=== PATIENT | female | born 1955 | race Caucasian/White ===

== ENCOUNTER 2025-03-30 16:41 | Emergency (ER) | payer MEDICARE, BC, SELFPAY ==
--- OUTSIDE RECORDS SUMMARY | 2025-03-30 16:43 | XMS_ITS ---
Author Organization [facility] Address [address] [place] [address] Care Team Providers Care Strategic Marketing Manager Name Role Phone Prudence Mckenzie M.D. Primary Care Provider Active Problems * This document contains information received from the source organization and may not represent a complete record from that organization. 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 Saw Property Field Adjuster. Repeat pelvic ultrasound in 12/2023. Hypertension Essential Primary 04/21/2017 Cancer Breast Personal History 04/21/2017 Overview (06/21/2024): 08/2011 s/p maste[facility] (bilateral) [facility] with [place] [facility] [place] Self chest exam and awareness of intermittent R axillary lymph nodes ongoing, annual clinical breast exam (usually in fall) Rhinitis Allergic 04/21/2017 Overview (01/28/2018): per External Record info - 04/17/2017 Current Treatment and Therapy Plans No current plan information found. Past Treatment and Therapy Plans No past plan information found. Lifetime Dose Tracking * Chemical Lifetime Dose Automatic Entry Manual Entr y Radiation 1.5 mGy 1.5 mGy 0 mGy Fluoro Time 0.3 minutes 0.3 minutes 0 minutes Resolved Problems Problem Noted Date Diagnosed Date Resolved Date Malignant Neoplasm Of Breast Female Left 09/24/2011 01/28/2018
--- OUTSIDE RECORDS SUMMARY | 2025-03-30 16:43 | XMS_ITS | Clinical Summary ---
Author Organization [facility] Address [address] [place] [address] Care Team Providers Care Push Connector Assembler Name Role Phone Prudence Mckenzie M.D. Primary Care Provider [phone] Source Comments Patient records contain information from all sites at [facility]. For routine questions regarding patient records, call [phone] during business hours, M-F 8:00 AM - 5:00 PM Central Time. Record requests for emergency care only can be directed to [phone] at any time.[facility] Allergies Active Allergy Reactions Criticality Noted Date Comments Adhesive Other (see comments) Low 05/27/2012 from bandaids Calcium Channel Blocking Agent Diltiazem Analogues Edema (Reselect Reaction) Low 10/19/2020 1 pill - ankle swelling (cant remember name) Cephalexin Rash Low 08/30/2020 Red, flat rash Ciprofloxacin Nausea Only,GI intolerance Low 05/18/2012 Codeine Nausea Only,GI intolerance Low 05/18/2012 Lisinopril Cough Low 10/19/2020 Nebivolol Shortness of breath (Reselect Reaction) High 08/08/2011 With exertion Sulfa (Sulfonamide Antibiotics) Rash,GI intolerance High 06/17/2011 Triamterene-Hydrochloro thiazid Shortness of breath (Reselect Reaction),Rash,Edema (Reselect Reaction),Hypertensio n High 08/08/2020 Medications * This document contains information received from the source organization and may not represent a complete record from that organization. naproxen sodium (ALEVE/ANAPROX) 220 mg tablet Take 220 mg by mouth as needed for pain. Active cholecalciferol (VITAMIN D3) 50 mcg (2,000 Unit) tablet Take 2,000 Units by mouth daily. Active methocarbamoL (ROBAXIN) 500 mg tabletIndicatio ns:Pain Shoulder Left Take 0.5 tablets (250 mg total) by mouth at bedtime as needed for muscle spasms. 10 tablet 08/21/2021 Active acetaminophen (TYLENOL) 500 mg tablet Take 500 mg by mouth every 6 (six) hours as needed for pain. Active losartan (Cozaar) 25 mg tablet Take 1 tablet (25 mg total) by mouth daily. 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 Saw Watch Caser. Repeat pelvic ultrasound in 12/2023. Hypertension Essential Primary 04/21/2017 Cancer Breast Personal History 04/21/2017 Overview (06/21/2024): 08/2011 s/p mastectomy (bilateral) at [facility] with reconstruction Revision of breast implants [facility] 08/2020 Self chest exam and awareness of intermittent R axillary lymph nodes ongoing, annual clinical breast exam (usually in fall) Rhinitis Allergic 04/21/2017 Overview (01/28/2018): per External Record info - 04/17/2017 Resolved Problems Problem Noted Date Diagnosed Date Resolved Date Malignant Neoplasm Of Breast Female Left 09/24/2011 01/28/2018 Encounters Date Type Department Care Team Description 03/30/2025 Nurse Triage Department of Family Medicine, [facility], in [place], [place] [address] [place] [phone] Laure Montgomery R.N. Toe Injury from Last 3 Months Immunizations Immunization Administration Dates Next Due Influenza Split 07/15/2013,05/23/2012 Influenza TIV (IM) 06/10/2012,09/06/2011, 002 Influenza high dose QV(65 ye ars or older) (PF) 07/15/2013 Influenza, Seasonal, Injectable 06/10/2012,09/06,08/13/2002 Influenza, Unspecified 06/22/2014,05/23/2012,02/2002 PPSV23 12/25/2022(Deferred: Other) RZV (SHINGRIX) 12/25/2022(Deferred: Patient dec ision) SARS-COV-2 (COVID-19) - PFIZ ER (Discontinued)(12 years or older) 12/25/2022(Deferred: Patient decision),12/01/2020,11/10/2020 Td (Adult), adsorbed 04/22/2008,04/14/1998 Td, (Adult) Unspecified 04/22/2008 Tdap 07/15/2013,09/07/2008 influenza trivalent high dos e (HD)(PF) 07/15/2013 influenza vaccine quad (FLUZONE/FLUARIX) (6 months and older)(PF) 07/29/2022,07/25/2021,06/22/2014 Family History Medical History Relation Name Comments Breast cancer Aunt maternal x2 and materna l cousin Skin cancer Brother Tato CABG - Coronary artery bypas s graft Father Sy Cataracts Father Sy Coronary artery disease Father Sy 5v b ypass Hypertension Father Sy Skin cancer Father Sy Stroke Father Sy Urolithiasis Grandfather Paternal Heart attack Maternal Grandfather Asthma Mother Carolee COPD Mother Carolee Cataracts Mother Carolee Coronary artery disease Mother Carolee sten t Hyperlipidemia Mother Carolee Hypertension Mother Carolee Skin cancer Mother Carolee Retinal detachment Other Asthma Sister 1 Sis Breast cancer Sister 1 Sis Stage 4 Fuchs' dystrophy Sister 1 Sis Asthma Sister 2 Hypertension Sister 3 Kiana Coronary artery disease Uncle Hypertension Uncle Anesthesia problems Neg Hx Glaucoma Neg Hx Macular degeneration Neg Hx Retinal degeneration Neg Hx Relation Name Status Comments Aunt maternal Brother Tato Alive Father Sy Alive Grandfather Paternal Maternal Grandfather Mother Carolee Alive Other Sister 1 Sis Alive Sister 2 Sister 3 Kiana Alive Uncle Social History Tobacco Use Types Packs/Day Years Used Date Smoking Tobacco: Never Smokeless Tobacco: Never Tobacco Cessation:Counseling Given: Not Answered Alcohol Use Standard Drinks/Week Comments Yes 0 (1 standard drink = 0.6 oz pur e alcohol) not drinking weekly [employer] Answer Date Recorded In the past 12 months has e [employer] gas, oil, or water [employer] threatened to shut off services in your home? No 11/10/2024 Humiliation, Afraid, Rape, and Kick questionnair e Answer Date Recorded Within the last year, have y ou been afraid of your partner or ex-partner? No 05/30/2022 Within the last year, have y ou been humiliated or emotionally abused in other ways by your partner or ex-partner? No Within the last year, have y ou been kicked, hit, slapped, or otherwise physically hurt by your partner or ex-partner? No 05/30/2022 Within the last year, have y ou been raped or forced to have any kind of sexual activity by your partner or ex-partner? No 05/30/2022 Hunger Vital Sign Answer Date Recorded Within the past 12 months, y ou worried that your food would run out before you got the money to buy more. Never true 11/11/19 25 Within the past 12 months, t he food you bought just didn't last and you didn't have money to get more. Never true 11/10/2024 PRAPARE - Transportation Answer Date Re corded In the past 12 months, has l ack of transportation kept you from medical appointments or from getting medications? No 01/2025 In the past 12 months, has l ack of transportation kept you from meetings, work, or from getting things needed for daily living? No 11/10/2024 Housing Stability Answer Date Recorded What is your living situation today? I have a [place] place to live 11/10/2024 Education Answer Date Recorded What is the highest level of school you have completed or the highest degree you have received? Some college, no degree 05/01/2020 Comments No Sex and Gender Information Value Date Recorded Sex Assigned at Female 08/27/2021 3:26 PM MUSIC ARTIST Legal Sex Female 3:32 AM MUSIC ARTIST Gender Identity Female 08/01/2020 1:33 PM MUSIC ARTIST Sexual Orientation Straight 08/01/2020 1: 33 PM MUSIC ARTIST Last Filed Vital Signs Vital Sign Reading Time Taken Comments Blood Pressure 151/93 08/03/2024 1:00 PM MUSIC ARTIST Pulse 70 08/03/2024 1:00 PM MUSIC ARTIST Temperature 36.5 C (97.7 F) 08/03/2024 11:56 AM MUSIC ARTIST Respiratory Rate 16 08/03/2024 12:39 PM MUSIC ARTIST Oxygen Saturation 100% 08/03/2024 1:00 PM MUSIC ARTIST Inhaled Oxygen Concentration - - Weight 66.5 kg (146 lb 9.7 oz) 08/03/2024 11:56 AM MUSIC ARTIST Height 162 cm (5' 3.78) 02/25/2024 8:37 AM CDT Body Mass Index 25.34 02/25/2024 8:37 AM CDT Plan of Treatment Upcoming Encounters Date Type Department Care Team (Latest Contact Info) Description 06/20/2025 9:10 AM CDT Appointment Department of Laboratory Medicine in [place], [place] [address] [place], [place] [phone] Prudence Mckenzie M.D. [address] [place] [phone] 06/28/2025 9:20 AM CDT Comprehensive Visit Department of Family Medicine, [facility], in [place] [place] [address] Prudence Mckenzie M.D. [address] [place] [phone] Discharge Disposition: Home or Self Care Health Maintenance Due Date Last Done Comments CT Colonography 1955 Hepatitis C Screening 1955 Visit: Medicare Annual Wellness 1955 Pneumococcal vaccine (50+ years) (1 of 1 - PCV) 2004 Zoster Vaccines (1 of 2) 2004 COVID-19 Vaccine (3 - season) 2024 12/01/2020, 11/10/2020 Depression Screening (Annual PHQ-2) 09/08/2024 Fall Risk Screen (Annual) 09/08/2024 Office Visit for Blood Pressure Check / Re-check 09/21/2024 06/21/2024 Influenza Vaccine (#1) 2025 , 07/29/2022, 07/25/2021, Additional history exists Visit: Chronic Disease, age 18+ 06/21/2025 06/21/2024 Creatinine Level (Kidney Function Test) 09/22/2025 09/22/2024, 10/06/2023, 06/20/2023, Additional history exists Potassium Level 09/22/2025 09/22/2024, 09/09, 06/20/2023, Additional history exists Sodium Level 09/22/2025 09/22/2024, 09/09, 06/20/2023, Additional history exists Cologuard 06/28/2027 06/28/2024 Fasting Glucose for Diabetes Screening 09/22/2027 09/22/2024, 10/06/2023, 06/20/2023, Additional history exists Colonoscopy 08/03/2029 08/03/2024, 04/09 (Performed elsewhere) Colorectal Cancer Surveillance 08/03/2029 DTaP,Tdap,and Td Vaccines (4 - Td or Tdap) 06/28/2034 06/28/2024, 07/15/2013, 09/07/2008, Additional history exists Cervical/Vaginal Cancer Screening Discontinued 05/19/2015 (Performed elsewhere), 08/23/2011 (Performed elsewhere) Bone Density Scan (Osteoporosis Screen) Discontinued 08/28/2022 Colonoscopy After Positive Cologuard Discontinued 08/03/2024 IPV Vaccines Aged Out No longer eligi ble based on patient's age to complete this topic Medical Devices Implanted Type Area Merchandise Flow Team Member Device Identifier Shelf Expiration Date Model / Serial / Lot Conversions - Default Historical Implant Device Implanted:2014 (Quantity not on file) Hardware e.g. pins/screws/r ods Description:Device Status Te xt - Hardware. screw in foot. Explanted Type Area Merchandise Flow Team Member Device Identifier Shelf Expiration Date Model / Serial / Lot Stent Inlay 7fr X 24cm - Junior [id number] Implanted:Qty: 1 on 06/17/2011 Ureteral Stent Ureter [employer] Description:Device Manufactu [facility] Patient Care Division. Device Status Text - [id number]. Stnt Uret Lp Cntr [id number] - [id number] Implanted:Qty: 1 on 11/13/2021 by Vidal Rubio M.D. at [facility] Ureteral Stent Left: Vagina [employer] 07/05/2024 [id number] / / [id number] Procedures Procedure Name Priority Date/Time Associated Diagnosis Comments BASIC METABOLIC PANEL, S/P Routine 09/22/2024 10:03 AM MUSIC ARTIST Hypertension Essential Primary Hypertension White Coat Nephrolithiasis COLONOSCOPY Routine 08/03/2024 12:36 PM MUSIC ARTIST Screening Cancer Colon COLOGUARD Routine 06/28/2024 6:40 AM CDT Screening Cancer Colon from Last 3 Months or Most Recently Relevant to Health Maintenance Results * Basic Metabolic Panel (09/22/2024 10:03 AM MUSIC ARTIST) Potassium, P 4.4 3.6 - 5.2 mmol/L 09/22/2024 12:13 PM MUSIC ARTIST RDWG Sodium, P 142 135 - 145 mmol/L 09/22/2024 12:13 PM MUSIC ARTIST RDWG Chloride, P 104 98 - 107 mmol/L 09/22/2024 12:13 PM MUSIC ARTIST RDWG Bicarbonate, P 25 22 - 29 mmol/L 09/22/2024 12:13 PM MUSIC ARTIST RDWG Anion Gap, P 13 7 - 15 09/22/2024 12:13 PM MUSIC ARTIST RDWG BUN (Blood Urea Nitrogen), P 15 6 - 21 mg/dL 09/22/2024 12:13 PM MUSIC ARTIST RDWG Creatinine 0.93 0.59 - 1.04 mg/dL 09/22/2024 12:13 PM MUSIC ARTIST RDWG Estimated GFR (eGFR) 67 >=60 mL/min/BSA 09/22/2024 12:13 PM MUSIC ARTIST RDWG Comment: Estimated GFR calculated using the 2020 CKD_EPI creatinine equation. Calcium, Total, P 9.7 8.8 - 10.2 mg/dL 09/22/2024 12:13 PM MUSIC ARTIST RDWG Glucose, P 94 70 - 140 mg/dL 09/22/2024 12:13 PM MUSIC ARTIST RDWG Blood (Blood, Peripheral Draw) 09/22/2024 10:03 AM MUSIC ARTIST 09/22/2024 11:36 AM MUSIC ARTIST us Prudence Mckenzie M.D. LAB BLOOD ADD-ON Final Resu lt [facility] [address] [place] [address], [facility] RDWG [facility] in [place] [address] [place] [address] * (ABNORMAL) Cologuard - Sent Out Lab (06/28/2024 6:40 AM CDT) Result Positive( A) Negative 07/03/2024 4:18 PM CDT EXLI Comment: POSITIVE TEST RESULT. A positive Cologuard result should be followed with a colonoscopy or visual examination of the colon. The normal value (reference range) for this assay is negative. TEST DESCRIPTION: Composite algorithmic analysis of stool DNA-biomarkers with hemoglobin immunoassay. Quantitative values of individual biomarkers are not reportable and are not associated with individual biomarker result reference ranges. Cologuard is intended for colorectal cancer screening of adults of either sex, 45 years or older, who are at average-risk for colorectal cancer (CRC). Cologuard has been approved for use by the U.S. FDA. The performance of Cologuard was established in a cross sectional study of average-risk adults aged 50-84. Cologuard performance in patients ages 45 to 49 years was estimated by sub-group analysis of near-age groups. Colonoscopies performed for a positive result may find as the most clinically significant lesion: colorectal cancer [4.0%], advanced adenoma (including sessile serrated polyps greater than or equal to 1cm diameter) [20%] or non- advanced adenoma [31%]; or no colorectal neoplasia [45%]. These estimates are derived from a prospective cross-sectional screening study of 10,000 individuals at average risk for colorectal cancer who were screened with both Cologuard and colonoscopy. (Ally Bland al, N Engl J Med 2014;370(14):1179-8119.) Cologuard may produce a false negative or false positive result (no colorectal cancer or precancerous polyp present at colonoscopy follow up). A negative Cologuard test result does not guarantee the absence of CRC or advanced adenoma (pre-cancer). The current Cologuard screening interval is every 3 years. ([place] Cancer Society and U.S. Multi-Society Task Force). Cologuard performance data in a 10,000 patient pivotal study using colonoscopy as the reference method can be accessed at the following location: [email or web address]/results. Additional description of the Cologuard test process, warnings and precautions can be found at www.cologuard.com. Stool (Stool) 06/28/2024 6:4 0 AM CDT 06/29/2024 12:14 PM CDT Prudence Mckenzie M.D. LAB BODY FLUIDS AND STOOLS ORDERABLES Final Result [employer] [address] [place] [id number] [address] [address] [place] [address], [address] [place] [address] from Last 3 Months or Most Recently Relevant to Health Maintenance Insurance [id number] Tonia VaughanANGY [id number] MEDIC[place] [address] Advance Directives For more information, please contact: [phone] Documents on File Type Date Recorded Patient Resident Physician In Radiology Expl anation Advance Directives 05/04/2020 2:20 PM POA for Healthcare Advance Directives 09/16/2013 12:00 AM Lega cy document. See document viewer. * Full Code (Latest Code Status on File) Date Activated Date Inactivated Comments 06/20/2022 8:14 AM 06/20/2022 2:01 PM Question Answer Comments Full Code: Discussed Healthcare Agents on File Name Relationship Healthcare Agent Relationship Communication Leilani Brenna Daughter Health Care Agent Luis Peres Son First Alternate Health Care Agent Care Teams Push Connector Assembler Relationship Specialty Start Date End Date Prudence Mckenzie M.D. [place] [phone] PCP - General Internal Medicine 01/23/18
--- OUTSIDE RECORDS SUMMARY | 2025-03-30 16:43 | XMS_ITS | Encounter Summary ---
Author Organization [facility] Address [address] [place] [address] Care Team Providers Care Ropeman Name Role Phone Prudence Mckenzie M.D. Primary Care Provider Reason for Visit * Reason Onset Date Comments Toe Injury 03/30/2025 Encounter Details Date Type Department Care Team (Late st Contact Info) Description 03/30/2025 Nurse Triage Department of Family Medicine, [facility], in [place], [place] [address] [place] [address] [place] [phone] Laure Montgomery, R.N. Toe Injury Social History Tobacco Use Types Packs/Day Years Used Date Smoking Tobacco: Never Smokeless Tobacco: Never Alcohol Use Standard Drinks/Week Comments Yes 0 (1 standard drink = 0.6 oz pur e alcohol) not drinking weekly [facility] Utilities Answer Date Recorded In the past 12 months has e electric, gas, oil, or water company threatened to shut off services in your [...] money to buy more. Never true 11/11/19 Within the past 12 months, t he [...] your living situation today? I have a [facility] place to live 11/10/2024 Education Answer Date Recorded What is the highest level of school you have completed or the highest degree you have received? Some college, no degree 05/01/2020 Comments No Sex and Gender Information Value Date Recorded Sex Assigned at Female 08/27/2021 3:26 PM CHILDREN COUNSELOR Legal Sex Female 3:32 AM CHILDREN COUNSELOR Gender Identity Female 08/01/2020 1:33 PM CHILDREN COUNSELOR Sexual Orientation Straight 08/01/2020 1: 33 PM CHILDREN COUNSELOR documented as of this encounter Miscellaneous Notes * Telephone Encounter - Laure Montgomery R.N. - 03/30/2025 2:17 PM CDT Chief Complaint / Reason for Call Patient is a 69 y.o. female calling regarding Toe Injury. Assessment Concern: Pt calling about broken little toe left foot. Pt states that toe is bent. Present for: 5-10 minutes Home cares tried: None Calling to request: nurse recommendation The recommended disposition is See a health care provider within 4 hours. Patient was warm transferred to [facility], Patient Appointment Program Architect at the clinic for further assistance. and If clinic appointment is not available in the next 4 hours, caller is advised to be seen in emergency department Reason for Disposition Looks like a broken bone (e.g., crooked or deformed) Protocols used: Toe Gkfucp-Nirye-RX Care Advice Patient/Caregiver understands and will follow care advice?: Yes, able to teach back Toe Bgsgzp-Ddoli-MM Nurse Laure Levine Mar 30, 2025 02:19 PM Care Advice PAIN MEDICINES: * For pain relief, you can take either acetaminophen, ibuprofen, or naproxen. * They are vrvj-edk-vyieiwa (OTC) pain drugs. You can buy them at the drugstore. * ACETAMINOPHEN - REGULAR STRENGTH TYLENOL: Take 650 mg (two 325 mg pills) by mouth every 4 to 6 hours as needed. Each Regular Strength Tylenol pill has 325 mg of acetaminophen. The most you should take is 10 pills a day (3,250 mg total). Note: In Bibi, the maximum is 12 pills a day (3,900 mg total). * ACETAMINOPHEN - EXTRA STRENGTH TYLENOL: Take 1,000 mg (two 500 mg pills) every 6 to 8 hours as needed. Each Extra Strength Tylenol pill has 500 mg of acetaminophen. The most you should take is 6 pills a day (3,000 mg total). Note: In Bibi, the maximum is 8 pills a day (4,000 mg total). * IBUPROFEN (SUCH MOTRIN, ADVIL): Take 400 mg (two 200 mg pills) by mouth every 6 hours. The most you should take is 6 pills a day (1,200 mg total). * NAPROXEN (SUCH ALEVE): Take 220 mg (one 220 mg pill) by mouth every 8 to 12 hours as needed. You may take 440 mg (two 220 mg pills) for your first dose. The most you should take is 3 pills a day(660 mg total). Note: In Bibi, the maximum is 2 pills a day (one every 12 hours; 440 mg total). * Use the lowest amount of medicine that makes your pain better. CALL BACK IF: * You become worse documented in this encounter Plan of Treatment Upcoming Encounters Date Type Department Care Team (Latest Contact Info) Description 06/20/2025 9:10 AM CDT Appointment Department of Laboratory Medicine in [place], [place] [address] [place] [phone] Prudence Mckenzie M.D. [address] [phone] 06/28/2025 9:20 AM CDT Comprehensive Visit Department of [facility], [facility], in [place], [place] [address] [place] [phone] Prudence Mckenzie M.D. [address] [phone] Discharge Disposition: Home or Self Care documented as of this encounter Visit Diagnoses Not on filedocumented in this encounter Care Teams Ropeman Relationship Specialty Start Date End Date Prudence Mckenzie M.D. [address] [phone] PCP - General Internal Medicine 01/23/18 documented as of this encounter
[2025-03-30 16:56] VITALS: BP 189/91; PULSE 74; RESP 18; TEMP 36.3; O2SAT 99; BMI 25.0
--- NOTE | 2025-03-30 17:04 | ED.LOWEXIN ---
HPI - Extremity Injury (Lower) General Date Seen: 03/30/25 Chief Complaint: Extremity Pain/Injury, Lower Stated Complaint: dislocated toe Time Seen by Provider: 03/30/25 16:54 Source: patient Mode of arrival: ambulatory Limitations: no limitations History of Present Illness HPI Narrative: Patient is a 69-year-old female presenting to the emergency department for left 5th toe pain. She states she was outside when she felt she was getting very hot and tried to go into the house. While she was walking her toe got caught on a chair. Initially went to urgent care and show she has a fractured toe that is displaced. Sent to emergency department for reduction. No other concerns noted. Related Data Home Medications ?Medication ?Instructions ?Recorded ?Confirmed losartan 25 mg tablet 25 mg PO DAILY 03/30/25 03/30/25 Allergies Allergy/AdvReac Type Severity Reaction Status Date / Time Sulfa (Sulfonamide Allergy Verified 03/30/25 15:55 Antibiotics) Review of Systems Narrative: Pertinent systems reviewed and were negative unless stated in HPI Exam Narrative: Exam Narrative: Const: Well-nourished, Well-developed, in mild distress Eyes: PERRL, no conjunctival injection, and symmetrical lids HENT: Atraumatic external nose and ears. Moist mucous membranes. CVS: Cap refill less than 2 seconds in left 5th toe MSK: Obvious deformity to left 5th toe. Skin: Warm, Dry. No rashes or lesions. Neuro: Normal Muscle tone, No focal neurological deficits. Psych: Awake, Alert, & Oriented x3. Appropriate mood and affect. Const: Vital Signs, click to edit/add: Vital Signs - 24 hr 03/30/25 16:56 Temperature 97.4 F L Pulse Rate [Pulse Oximeter] 74 Respiratory Rate 18 Blood Pressure [Ri ght Upper Arm] 189/91 H Pulse Oximetry 99 Oxygen Delivery Me thod Room Air Course Vital Signs Vital signs: Initial Vital Signs Temperature 97.4 F L 03/30/25 16:56 Temperature Source Temporal Artery Scan 03/30/25 16:56 Pulse Rate 74 03/30/25 16:56 Pulse Rhythm Regular 03/30/25 16:56 Respiratory Rate 18 03/30/25 16:56 Blood Pressure 189/91 H 03/30/25 16:56 Blood Pressure Mean 123 H 03/30/25 16:56 Blood Pressure Position Sitting 03/30/25 16:56 Pulse Oximetry 99 03/30/25 16:56 Oxygen Delivery Method Room Air 03/30/25 16:56 Vital Signs Temperature 97.4 F L 03/30/25 16:56 Pulse Rate 74 03/30/25 16:56 Respiratory Rate 18 03/30/25 16:56 Blood Pressure 189/91 H 03/30/25 16:56 Pulse Oximetry 99 03/30/25 16:56 Oxygen Delivery Method Room Air 03/30/25 16:56 Temperature 97.4 F L 03/30/25 16:56 Pulse Rate 74 03/30/25 16:56 Respiratory Rate 18 03/30/25 16:56 Blood Pressure 189/91 H 03/30/25 16:56 Pulse Oximetry 99 03/30/25 16:56 Oxygen Delivery Method Room Air 03/30/25 16:56 MDM - Extremity Injury (Lower) MDM Narrative Medical decision making narrative: Patient is 69-year-old female presenting for a toe fracture. They were unable to reduce it at urgent care so she was sent to the emergency department. Digital nerve block was done and the toe was reduced. Postreduction x-rays were done showing improvement in the alignment. There is still some residual lateral displacement. I went and tried to reduce it more and I do believe I improved it. Do not believe repeat imaging is necessary. She is feeling well. Brian taping was done. She will be discharged. Imaging Data Left 5th toe x-ray: Attestation: I have reviewed the pertinent imaging results. Radiologist's impression: Improved postreduction alignment of the 5th proximal phalanx shaft fracture with approximately 1/2 shaft-width residual lateral displacement. No evident new abnormalities. Dictated by Derick Baum MD @ 03/30/2025 5:48:37 PM Discharge Plan Discharge Clinical Impression: Fracture of toe Qualifiers: Encounter type: initial encounter Toe: lesser toe Fracture type: closed Phalanx: proximal Fracture alignment: displaced Laterality: left Qualified Code(s): S92.512A - Displaced fracture of proximal phalanx of left lesser toe(s), initial encounter for closed fracture Patient Disposition: Home, Self-Care Condition: Improved Instructions: Toe Fracture (ED) Additional Instructions: You can use a stiff-soled shoe for pain control when walking a few feel like he needed. Otherwise use brian taping. Follow-up with your primary care provider in 1 week to make sure it is healing appropriately Prescriptions: No Action losartan 25 mg tablet 25 mg PO DAILY Follow Up/Referrals: Provider,Not a Local [Primary Care Provider, Family Practice] Stand Alone Forms: MyHealth Info Instructions Procedures Orthopedic Fracture Reduction Left 5th toe: Side: left Fracture location: toe Analgesia: nerve block Technique: direct manipulation Post Reduction X-rays Demonstrate: acceptable reduction Post-reduction neuro exam: intact Post-reduction vascular exam: intact Patient Tolerated Procedure: well and no complications Additional Comments: Brian-taped
--- NOTE | 2025-03-30 17:15 | CRLHL7_ITS ---
For Patients: As a result of the Cures Act, medical imaging exams and procedure reports are released immediately into your electronic medical record. You may view this report before your referring provider. If you have questions, please contact your health care provider. INDICATION: Stubbed toe, post reduction TECHNIQUE: Toe radiographs 3 views COMPARISON: Earlier same day toe radiographs FINDINGS/IMPRESSION : Improved postreduction alignment of the 5th proximal phalanx shaft fracture with approximately 1/2 shaft-width residual lateral displacement. No evident new abnormalities. Dictated by Derick Baum MD @ 03/30/2025 5:48:37 PM (Electronically Signed)
== END 2025-03-30 18:25 | disposition home or self-care (01) ==
PROVIDERS: Emergency Provider Student in an Organized Health Care Education/Training Program
DX: S92.512A Displaced fracture of proximal phalanx of left lesser toe(s), initial encounter for closed fracture (principal); W22.8XXA Striking against or struck by other objects, initial encounter
CPT/HCPCS: 28515; 73660; 99283